=== PATIENT | female | born 1975 | race African-American/Black ===

== ENCOUNTER 2023-04-19 09:47 | Emergency (ER) | payer BC ==
[~2023-04-19] VITALS: Ht 175.3 cm; Wt 61.0 kg
[2023-04-19 09:51] VITALS: TEMP 98.7; O2SAT 100
[2023-04-19] MEDS ORDERED: ONDANSETRON 4MG ODT PO ONE (12:15)
[2023-04-19] MEDS ORDERED: MECLIZINE 25MG TABLET PO ONE (12:15)
[2023-04-19 12:33] LABS: BASOPHILS % 0.7 % (0.0-2.0); DIFFERENTIAL COMMENT 0; EOSINOPHILS % 0.4 % (0.0-5.0); HEMATOCRIT. 32.5 % (36.0-48.0); HEMOGLOBIN. 10.3 g/dL (12.0-16.0); LYMPHOCYTES % 11.4 % (20.0-50.0); MEAN CORPUSCULAR HEMOGLOBIN 22.3 pg (28.0-32.0); MEAN CORPUSCULAR HGB CONC 31.7 g/dL (31.0-37.0); MEAN CORPUSCULAR VOLUME 70.5 fL (81.0-99.0); MEAN PLATELET VOLUME 8.2 fl (7.4-10.4); MONOCYTES % 5.5 % (2.0-8.0); PLATELET 270 x1000/uL (130-400); RED BLOOD CELL COUNT 4.61 mill/uL (4.2-5.4); RED CELL DISTRIBUTION WIDTH 19.5 % (11.6-14.6); WHITE BLOOD COUNT 6.1 x1000/uL (4.5-11.0)
[2023-04-19 12:45] LABS: HCG SCREEN NEGATIVE
[2023-04-19] MEDS ORDERED: MECLIZINE 12.5MG TABLET PO NR (12:46)
[2023-04-19 12:47] LABS: CHLORIDE 109 mEq/L (98-107); INDEX HEMOLYSI 1 (1-3); INDEX ICTERIC 1 (1-4); INDEX LIPEMIC 1 (1-3); POTASSIUM 3.9 mEq/L (3.5-5.1); SODIUM 138 mEq/L (136-145)
[2023-04-19 12:55] LABS: ALANINE AMINOTRANSFERASE 23 IU/L (13-61); ALBUMIN 4.1 g/dL (3.4-5.0); ASPARTATE AMINOTRANSFERASE 24 IU/L (15-37); BILIRUBIN TOTAL 0.7 mg/dL (0.1-1.0); CALCIUM 8.8 mg/dL (8.5-10.1); CREATININE 0.8 mg/dL (0.6-1.3); GLUCOSE 111 mg/dL (70-105); PROTEIN TOTAL 7.5 g/dL (6.0-8.3); UREA NITROGEN BLOOD 11 mg/dL (7-21)
[2023-04-19 13:10] LABS: CARBON DIOXIDE 23 mEq/L (21-32)
[2023-04-19 13:21] VITALS: BP 138/85; PULSE 83; RESP 16
[2023-04-19] MEDS ORDERED: ONDA4TAB11 PO (13:30)
[2023-04-19] MEDS ORDERED: MECL-299 MT (13:32)
== END 2023-04-19 13:58 | disposition home or self-care (01) ==
LOC: ER 10:16
DX: R42 Dizziness and giddiness (principal); Z90.49 Acquired absence of other specified parts of digestive tract; Z98.890 Other specified postprocedural states
CPT/HCPCS: 99284; 80053; 84703; 85025; 36415; 93005; J8597; Q0162